=== PATIENT | female | born 1985 | race Caucasian/White ===

== ENCOUNTER → 2024-09-28 | Outpatient (CLI) | payer OTHER, SELFPAY ==
--- NOTE | 2024-09-28 | XR_ITS ---
Examination: Foot, left, 3 views Technique: AP, oblique, lateral views foot, 3 views Date and time of exam: September 28, 2024 0847 hours INDICATIONS: History acute fracture fourth digit 3 weeks ago FINDINGS: Fracture midportion proximal phalanx fifth digit No significant bony callus No significant displacement IMPRESSION: Fracture proximal phalanx fourth digit without significant bony callus formation at this time
== END | disposition home or self-care (01) ==
LOC: CDIM 07:30
PROVIDERS: PCP Family Medicine; Referring Provider Nurse Practitioner Family; Visit Provider Nurse Practitioner Family
DX: S92.512A Displaced fracture of proximal phalanx of left lesser toe(s), initial encounter for closed fracture (principal); X58.XXXA Exposure to other specified factors, initial encounter
CPT/HCPCS: 73630